=== PATIENT | female | born 1965 | race American Indian/Alaskan Native ===

== ENCOUNTER 2016-10-09 08:39 | Emergency (ER) | payer OTHER ==
[2016-10-09 08:43] VITALS: BP 140/80; PULSE 105; RESP 18; TEMP 99.4; O2SAT 96
[2016-10-09 08:44] VITALS: BMI 29.0
--- NOTE | 2016-10-09 09:20 | ED PDOC ---
HPI: CCC, URI, Sore Throat Time Seen by Provider: 10/09/16 09:06 Chief Complaint (Nursing): ENT Problem Chief Complaint (Provider): Sore throat History Per: Patient History/Exam Limitations: no limitations Have you had recent travel within the past 21 days to any of the following countries: [place], [place], [place] or [place]?: No Onset/Duration Of Symptoms: Days (3) Current Symptoms Are (Timing): Still Present Location Of Pain: Throat Additional Complaint(s): Pt. with cough, congestion, runny nose, bodyaches, weakness. Sore throat on the right but able to swallow. Has sneezing as well. No chest pain, dyspnea, fever, abd pain, vomiting. No headaches, dizziness. No vision changes. Took 200mg of motrin yesterday. Past Medical History Reviewed: Nursing Documentation, Vital Signs Vital Signs: Last Vital Signs Temp 99.4 F 10/09/16 08:43 Pulse 105 H 10/09/16 08:43 Resp 18 10/09/16 08:43 BP 140/80 10/09/16 08:43 Pulse Ox 96 10/09/16 09:21 - Medical History PMH: No Chronic Diseases - Surgical History Surgical History: No Surg Hx - Family History Family History: States: Unknown Family Hx - Living Arrangements Living Arrangements: With Family - Social History Current smoker - smoking cessation education provided: No Alcohol: None - Home Medications Home Medications: Ambulatory Orders Medication Instructions Recorded Ibuprofen [Motrin] 600 mg PO TID 7 Days 10/09/16 Penicillin VK [Pen-Vee K] 500 mg PO BID 7 Days 10/09/16 - Allergies Allergies/Adverse Reactions: Allergies Allergy/AdvReac Type Severity Reaction Status Date / Time No Known Allergies Allergy Verified 10/09/16 09:14 Review of Systems Constitutional: Positive for: Weakness. Negative for: Fever ENT: Positive for: Nose Pain, Nose Discharge, Nose Congestion, Throat Pain. Negative for: Ear Pain, Mouth Pain Cardiovascular: Negative for: Chest Pain, Orthopnea Respiratory: Positive for: Cough. Negative for: Shortness of Breath Gastrointestinal: Negative for: Vomiting, Abdominal Pain Musculoskeletal: Negative for: Neck Pain, Shoulder Pain, Arm Pain, Back Pain, Leg Pain Skin: Negative for: Rash, Lesions Neurological: Negative for: Weakness Physical Exam - Reviewed Nursing Documentation Reviewed: Yes Vital Signs Reviewed: Yes - Physical Exam Appears: Positive for: Non-toxic, No Acute Distress Head Exam: Positive for: ATRAUMATIC, NORMAL INSPECTION, NORMOCEPHALIC Skin: Positive for: Normal Color, Warm, DRY Eye Exam: Positive for: EOMI, Normal appearance, PERRL ENT: Positive for: Nasal Congestion, Pharyngeal Erythema (mild in the right around tonsil). Negative for: Tonsillar Exudate Neck: Positive for: Normal, Painless ROM Cardiovascular/Chest: Positive for: Regular Rate, Rhythm Respiratory: Positive for: CNT, Normal Breath Sounds Back: Positive for: Normal Inspection. Negative for: L CVA Tenderness, R CVA Tenderness Extremity: Positive for: Normal ROM. Negative for: Tenderness, Pedal Edema Neurologic/Psych: Positive for: Alert, Oriented - Laboratory Results Interpretation Of Abn Labs: strep pos - ECG O2 Sat by Pulse Oximetry: 96 Pulse Ox Interpretation: Normal - Progress ED Course And Treament: 1021: Stable. AAOx3. Pain free. Tolerated PO. Fu with pcp. Disposition - Clinical Impression Clinical Impression: Strep pharyngitis - Patient ED Disposition Is Patient to be Admitted: No Counseled Patient/Family Regarding: Studies Performed, Diagnosis, Need For Followup, Rx Given - Disposition Referrals: [facility] [Outside] - 10/12/16 Disposition: Routine/Home Disposition Time: 10:22 Condition: STABLE Additional Instructions: Return if not better in 3 days. Prescriptions: Ibuprofen [Motrin] 600 mg PO TID 7 Days Penicillin VK [Pen-Vee K] 500 mg PO BID 7 Days Instructions: Pharyngitis (ED)
== END 2016-10-09 10:29 | disposition home or self-care (01) ==
LOC: H.ER 08:39
DX: J02.0 Streptococcal pharyngitis (principal); R05 Cough; R50.9 Fever, unspecified